=== PATIENT | male | born 1960 | race Caucasian/White ===

== ENCOUNTER 2020-06-09 15:42 | Emergency (ER) | payer MEDICAID ==
[~2020-06-09] VITALS: Ht 172.7 cm; Wt 183.9 kg
[2020-06-09 17:27] LABS: BASOPHILS # (AUTO) 0.1 X10'3 (0-0.2); BASOPHILS % (AUTO) 0.9 % (0-1); EOSINOPHILS # (AUTO) 0.2 X10'3 (0-0.9); HEMATOCRIT 46.1 % (42.0-52.0); HEMOGLOBIN 15.6 g/dl (14.0-17.9); LYMPHOCYTES # (AUTO) 1.5 X10'3 (1.1-4.8); LYMPHOCYTES % (AUTO) 9.4 % (21-51); MEAN CORPUSCULAR HEMOGLOBIN 30.3 PG (27.0-31.0); MEAN CORPUSCULAR HGB CONC 33.7 g/dL (33.0-36.5); MEAN PLATELET VOLUME 8.9 FL (7.4-10.4); MONOCYTES # (AUTO) 1.2 X10'3 (0-0.9); MONOCYTES % (AUTO) 7.8 % (2-12); NEUTROPHILS # (AUTO) 12.6 X10'3 (1.8-7.7); NEUTROPHILS % (AUTO) 80.9 % (42-75); PLATELET COUNT 210 X10'3 (140-440); RED BLOOD COUNT 5.13 X10'6 (4.70-6.10); RED CELL DISTRIBUTION WIDTH 15.3 % (11.5-14.5); WHITE BLOOD COUNT 15.6 X10'3 (4.5-11.0)
--- NOTE | 2020-06-09 17:30 | NUR ---
Pt arrived on unit straight back after triage around 1645. Pt cooperative with assessment.
[2020-06-09 17:42] LABS: ALANINE AMINOTRANSFERASE 16 U/L (12-78); ALBUMIN/GLOBULIN RATIO 0.7 (1.1-1.5); ALKALINE PHOSPHATASE 72 IU/L (46-116); ANION GAP 6 (8-16); ASPARTATE AMINO TRANSFERASE 15 U/L (10-37); BILIRUBIN,TOTAL 0.6 MG/DL (0.1-1.0); BLOOD UREA NITROGEN 16 MG/DL (7-18); BUN/CREATININE RATIO 12.1 (5.4-32.0); CALCIUM 9.3 MG/DL (8.5-10.1); CHLORIDE 104 MMOL/L (99-107); CREATININE 1.32 MG/DL (0.60-1.10); GLUCOSE 98 MG/DL (70-104); POTASSIUM 4.8 MMOL/L (3.5-5.1); SODIUM 140 MMOL/L (135-145); TOTAL CARBON DIOXIDE 30.4 MMOL/L (24-32); TOTAL PROTEIN 7.6 G/DL (6.4-8.2); eGFR 55 ML/MIN
[2020-06-09] MEDS ORDERED: AMLO2.5T2 PO (17:42)
[2020-06-09 17:43] LABS: ETHANOL < 0.010 GM/DL (0.0-0.010)
[2020-06-09 18:39] LABS: URINE AMPHETAMINE SCREEN NEGATIVE (Neg); URINE BARBITUATE SCREEN NEGATIVE (Neg); URINE BENZODIAZEPINES SCREEN NEGATIVE (Neg); URINE CANNABINOID SCREEN NEGATIVE (Neg); URINE COCAINE SCREEN NEGATIVE (Neg); URINE METHADONE SCREEN NEGATIVE (Neg); URINE OPIATE SCREEN NEGATIVE (Neg); URINE PHENCYCLIDINE SCREEN NEGATIVE (Neg)
[2020-06-09] MEDS ORDERED: amLODIPine 5mg tablet PO SCH (19:20)
--- NOTE | 2020-06-09 19:40 | NUR ---
packet faxed to [facility]
--- NOTE | 2020-06-09 20:33 | NUR ---
pt has cleaned sore skin between his left testicle and thigh. then applied barrier cream. the skin in this are is tough but also sore mostly on his thigh but also on his left testicle.
--- NOTE | 2020-06-09 22:00 | NUR ---
Pt sleeping respirations noisy and irregular at time. Pt ambulates independantly to BR.
--- NOTE | 2020-06-10 03:00 | NUR ---
Pt up to BR given Barrier cream self applied to wound on thigh and testicle.
--- NOTE | 2020-06-10 05:15 | NUR ---
Pt sitting on side of bed dozing. Changed bed position head up to allow pt to sit up in bed and sleep. Pt has been restless up to BR frequently which he says is the norm for him. Up to BR declined to apply barrier cream "I'll get it next time." Bath wipes at bedside for pt to do kareem-care.
--- NOTE | 2020-06-10 07:00 | NUR ---
pt is sleeping
[2020-06-10] MEDS ORDERED: SULF1TAB49 PO (07:29)
[2020-06-10] MEDS ORDERED: CEPH500C5 PO (07:29)
[2020-06-10] MEDS ORDERED: sulfamethoxazole/trimethoprim DS (800/160mg) tablet PO ONE (07:30)
[2020-06-10] MEDS ORDERED: cephalexin 500mg capsule PO ONE (07:30)
[2020-06-10] MEDS ORDERED: amLODIPine 5mg tablet PO SCH (08:00)
--- NOTE | 2020-06-10 08:00 | NUR ---
pt is eating breakfast
--- NOTE | 2020-06-10 08:57 | NUR ---
PT IS BEING EVALUATED BY [facility] CLINICIAN. REQUESTED BY CLINICIAN PT IS GIVEN HIS CELL PHONE IN ORDER TO LOOK UP A PHONE NUMBER FOR A FAMILY MEMBER.
--- NOTE | 2020-06-10 10:00 | NUR ---
pt's family purphased him bus ticket to return home. faxed rx to [employer] will provide transportation to [facility] in the morning
--- NOTE | 2020-06-10 11:00 | NUR ---
pt is sleeping
--- NOTE | 2020-06-10 12:00 | NUR ---
pt is sleeping
--- NOTE | 2020-06-10 13:25 | NUR ---
pt is sleeping
--- NOTE | 2020-06-10 18:00 | NUR ---
RECEIVED PT SITTING UP ON BEDSIDE HAVING DINNER UPDATED PT PLAN OF CARE AND PREPAIRED PT FOR HIS EARLY AM DISCHARGE AT 0245 . PT IS TO TAKE A CAB TO THE [employer] STATION IN [place] FOR A BUS DEPARTURE TO [place] WHERE HIS SON HAD AGREED TO CARE FOR HIM PER [facility]. PT HAS A PURCHASED BUS TICKET AND HIS PRESCPITONS FILLED . PT VERBALIZED UNDERSTABDING AND AGREES TO THE CURRENT PLAN OF CARE ,
--- NOTE | 2020-06-10 19:00 | NUR ---
PT RESTING IN BED HOB ELEVATED 45 DEGREES. PT UP TO BATHROOM INDEPENDENTLY A FEW TIMES WITH STEADY GATE AND AN OCCATIONAL LIMP FROM HIS CELLULITSIS DENIES PAIN OR ANY DISCOMFORT ENCOURAGED PT TO BE INDEPENDENT HE CAN HE WILL SOON BE DISCHARED ON HIS OWN . PT HAS CONTRACTED FOR SAFETY WITH THIS RECORDER WHEN ASKED IF HE WAS COMFORTABLE WITH HIS DISCHARGE . PT CURRENTLY DENING ANY SI AT THIS TIME , STATES HE WILL BE METTING HIS GRANDCHILDREN . ENCOURAGED PT TO KEEP THAT FOCUS OF POSITIVES DURNING HIS TRAVEL EXPERIEMCE . 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 PT ABLE TO VERBALIZED UNSERSTANDING AND INSTRUCTION ON THE BUS DEPARTURE TIMES, TRANSFERS, AND ARRIVAL . PT IS AWARE HE WILL BE INDIVIDUALLY RESPONSIBLE FOR HIMSELF ONCE HE HAS LEFT [facility] AND WILL HAVE TO REMAIN AT THE BUS STOP UNTIL THE BUS ARRIVALS AT 0420 WITH A DEPARTURE TIME OF 440 AM PT IS ALSO AWARE HE NEEDS TO BE AT THE BUS STOP APPROX 1 - 1 1/2 HR PRIOR TO DEPARTURE WELL THE TICKET BEING NO REFUNDABLE. NO FURTHER QUESTIONS ASKED
--- NOTE | 2020-06-10 19:15 | NUR ---
CHARGE NURSE AND SERVIN BOTH AWARE OF PATIENT DISCHARGE CIRCUMSTANCES PREVIOUSLY MENTIONED AND THE HOSPITAL WILL BE PROVIDEING THE PATIENT WITH 4 SACK LUNCHES AND SOME NO PARISHABLE ITEMS SNACKS FOR HIS 4 DAY TRIP TO HIS SON .
--- NOTE | 2020-06-10 20:02 | NUR ---
PT UP TO BATHROOM AGAIN . THEN BACK TO BED . STATED HE WAS GOING TO GO TO SLEEP IN THE AM HE WILL BE AWOKEN EARLY
--- NOTE | 2020-06-10 21:00 | NUR ---
PT SLEEPING SUPINE HOB ELEVATED 30 DEGREES IN THE DIRECT LINE OF NURSING STAFF WILL CONTINUE TO MONITOR AND REASSESS
--- NOTE | 2020-06-10 22:00 | NUR ---
PT SLEEPING UPRIGHT IN BED HOB ELEVATED 30 DEGREES . RESP EVEN AND UNLABORED WITH AN OCCATIONAL SNORE WILL CONTINUE TO MONITOR AND REASSESS
--- NOTE | 2020-06-10 23:05 | NUR ---
CONTACTED [facility] AT [facility] CAB TO ARRANGE CAB TRANSPORTATION TO THE [facility] BUS STATION IN [facility] AT 0245 AM SO PT CAN BE AT STATION AT 03 -1 1/2 HR BEFORE BUS DEPARTURE TIME OF 0440 THEY WILL BOARD AT 0420
--- NOTE | 2020-06-10 23:41 | NUR ---
PT AWAKE SITTING AT BEDSIDE QUIETLY . ADVISED PT HE HAS 2 HR AND WILL BE AWOKEN FOR DISCAHRED AND HIS TRASPORTATION TO THE BUS STATION IN [place]OX 2 [place] PT VERBALIZED UNDERSTANDING . PT IN THE DIRECT LINE OF SIGHT OF NURSING STAFF WILL CONTINUE TO MONITOR ADN REASSESS NEEDED
--- NOTE | 2020-06-10 23:59 | NUR ---
RELIEVING RN FOR BREAK, PT IS SITTING UP ON BED, CALM AND COOPERATIVE
--- NOTE | 2020-06-11 01:00 | NUR ---
pt sitting at bedside . awaiting discharge
--- NOTE | 2020-06-11 02:10 | NUR ---
pt changing inyo his own clothes for discharge
--- NOTE | 2020-06-11 02:40 | NUR ---
PT HAS CONTRACTED FOR SAFETY WITH THIS RECORDER WHEN ASKED IF HE WAS COMFORTABLE WITH HIS DISCHARGE . PT CURRENTLY DENING ANY SI AT THIS TIME , STATES HE WILL BE METTING HIS GRANDCHILDREN . ENCOURAGED PT TO KEEP THAT FOCUS OF POSITIVES DURNING HIS TRAVEL EXPERIEMCE . 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 PT ABLE TO VERBALIZED UNSERSTANDING AND INSTRUCTION ON THE BUS DEPARTURE TIMES, TRANSFERS, AND ARRIVAL . PT IS AWARE HE WILL BE INDIVIDUALLY RESPONSIBLE FOR HIMSELF ONCE HE HAS LEFT [facility] AND WILL HAVE TO REMAIN AT THE BUS STOP UNTIL THE BUS ARRIVALS AT 0420 WITH A DEPARTURE TIME OF 440 AM PT IS ALSO AWARE HE has bus transfer . see d/c reassements for further details
[2020-06-11 02:56] VITALS: BP 158/78
== END 2020-06-11 02:40 ==
LOC: ER 15:43
DX: L03.314 Cellulitis of groin (principal); R45.851 Suicidal ideations; M25.561 Pain in right knee; M25.562 Pain in left knee; Z59.0 Homelessness; Z79.899 Other long term (current) drug therapy
CPT/HCPCS: 36415; 80053; 80305; 80320; 84443; 85025; 99285